=== PATIENT | female | born 1995 | race Hispanic/Latino ===

== ENCOUNTER 2019-08-05 01:35 | Emergency (ER) | payer OTHER ==
[2019-08-05 02:16] LABS: APPEARANCE,URINE Cloudy (CLEAR); BILIRUBIN,URINE Negative (NEGATIVE); COLOR,URINE Yellow (YELLOW); GLUCOSE, URINE (UA) Negative (NEGATIVE); KETONES,URINE Negative (NEGATIVE); LEUKOCYTE ESTERASE ,URINE Large (NEGATIVE); NITRATE,URINE Negative (NEGATIVE); OCCULT BLOOD,URINE Negative (NEGATIVE); PROTEIN,URINE Negative (NEGATIVE)
[2019-08-05 02:19] LABS: HCG,QUAL RESULT POSITIVE (NEGATIVE)
[2019-08-05 02:37] LABS: RBC,URINE 0-1 /HPF (0-1)
[2019-08-05 02:38] LABS: BACTERIA,URINE Few /HPF (None Seen); SQUAMOUS EPITHELIAL CELL,UR Moderate /HPF (0-2); TRICHOMONAS,URINE Rare /LPF (None Seen); YEAST,URINE BUDDING Rare /HPF (None Seen)
[2019-08-05 02:53] LABS: BASOPHILS % (AUTO) 0.5 % (0.0-5.0); EOSINOPHILS % (AUTO) 3.1 % (0.0-8.0); HEMATOCRIT 43.8 % (36-48); LYMPHOCYTES % (AUTO) 12.5 % (21.0-51.0); MEAN CORPUSCULAR HEMOGLOBIN 29.1 pg (27.0-33.0); MEAN CORPUSCULAR HGB CONC 33.5 g/dL (32.0-36.0); MONOCYTES % (AUTO) 5.1 % (3.0-13.0); NEUTROPHILS % (AUTO) 78.8 % (40.0-77.0); PLATELET COUNT (AUTO) 252 K/uL (130-400); RED BLOOD CELL COUNT(AUTO) 5.04 MIL/uL (4.00-5.50); RED CELL DISTRIBUTION WIDTH 13.5 % (11.0-15.5); WHITE BLOOD COUNT (AUTO) 12.4 K/uL (4.8-10.8)
[2019-08-05 03:19] LABS: CREATININE 0.7 mg/dL (0.5-1.5); POTASSIUM 3.9 mmol/L (3.5-5.1)
[2019-08-05 03:23] LABS: ALBUMIN 3.5 g/dL (3.5-5.0); BILIRUBIN,TOTAL 0.2 mg/dL (0.2-1.0); TOTAL PROTEIN, SERUM 7.5 g/dL (6.0-8.3)
== END 2019-08-05 04:52 | disposition home or self-care (01) ==
LOC: EDH 01:35
DX: O23.41 Unspecified infection of urinary tract in pregnancy, first trimester (principal); O99.511 Diseases of the respiratory system complicating pregnancy, first trimester; R11.2 Nausea with vomiting, unspecified; R10.9 Unspecified abdominal pain; J45.909 Unspecified asthma, uncomplicated; Z91.010 Allergy to peanuts; Z3A.01 Less than 8 weeks gestation of pregnancy
CPT/HCPCS: 36415; 76801; 80053; 81001; 81025; 83690; 84702; 85025

== ENCOUNTER 2019-09-28 01:19 | Emergency (ER) | payer OTHER ==
[2019-09-28 01:44] LABS: APPEARANCE,URINE Clear (CLEAR); BILIRUBIN,URINE Negative (NEGATIVE); COLOR,URINE Yellow (YELLOW); GLUCOSE, URINE (UA) Negative (NEGATIVE); KETONES,URINE Negative (NEGATIVE); LEUKOCYTE ESTERASE ,URINE Trace (NEGATIVE); NITRATE,URINE Negative (NEGATIVE); OCCULT BLOOD,URINE Negative (NEGATIVE); PH,URINE 7.5 (5.0-8.0); PROTEIN,URINE Negative (NEGATIVE); UROBILINOGEN,URINE 0.2 mg/dL (0.2-1.0)
[2019-09-28 01:59] LABS: BACTERIA,URINE None Seen /HPF (None Seen); RBC,URINE None Seen /HPF (0-1); SQUAMOUS EPITHELIAL CELL,UR Rare /HPF (0-2); WBC,URINE None Seen /HPF (0-1)
[2019-09-28] MEDS ORDERED: FAMOTIDINE/PF 20 MG/2 ML VIAL IV ONE (02:00)
[2019-09-28 02:02] LABS: BASOPHILS % (AUTO) 0.5 % (0.0-5.0); EOSINOPHILS % (AUTO) 2.8 % (0.0-8.0); HEMATOCRIT 35.2 % (36-48); LYMPHOCYTES % (AUTO) 20.9 % (21.0-51.0); MEAN CORPUSCULAR HEMOGLOBIN 28.5 pg (27.0-33.0); MEAN CORPUSCULAR HGB CONC 33.2 g/dL (32.0-36.0); MEAN CORPUSCULAR VOLUME 85.9 fL (79-99); MONOCYTES % (AUTO) 7.1 % (3.0-13.0); NEUTROPHILS % (AUTO) 68.3 % (40.0-77.0); PLATELET COUNT (AUTO) 233 K/uL (130-400); RED CELL DISTRIBUTION WIDTH 13.4 % (11.0-15.5); WHITE BLOOD COUNT (AUTO) 10.7 K/uL (4.8-10.8)
[2019-09-28 02:11] LABS: CREATININE 0.5 mg/dL (0.5-1.5); POTASSIUM 3.6 mmol/L (3.5-5.1)
[2019-09-28 02:36] LABS: ALBUMIN 3.1 g/dL (3.5-5.0); BILIRUBIN,TOTAL 0.1 mg/dL (0.2-1.0); TOTAL PROTEIN, SERUM 7.1 g/dL (6.0-8.3)
== END 2019-09-28 03:44 | disposition home or self-care (01) ==
LOC: EDH 01:19
DX: O99.612 Diseases of the digestive system complicating pregnancy, second trimester (principal); K80.80 Other cholelithiasis without obstruction; O99.512 Diseases of the respiratory system complicating pregnancy, second trimester; J45.909 Unspecified asthma, uncomplicated; M54.2 Cervicalgia; Z91.010 Allergy to peanuts; Z79.899 Other long term (current) drug therapy; Z3A.15 15 weeks gestation of pregnancy
CPT/HCPCS: 36415; 76705; 76801; 80053; 81001; 82150; 83690; 84702; 85025; 96374; 99285; J3490

== ENCOUNTER 2020-02-07 01:19 | Observation (INO) | payer MEDICAID, OTHER ==
[~2020-02-07] VITALS: Ht 152.4 cm; Wt 114.8 kg
[2020-02-07] MEDS ORDERED: LACTATED RINGERS 1000ML IV PRN (01:30)
[2020-02-07] MEDS ORDERED: GLYB5TAB8 PO (01:35)
[2020-02-07 01:40] VITALS: BP 120/59
[2020-02-07] MEDS: LACTATED RINGERS 1000ML 1,000 ML IV SCH ×2 (01:50→03:19)
[2020-02-07 02:01] LABS: APPEARANCE,URINE Clear (CLEAR); BILIRUBIN,URINE Negative (NEGATIVE); COLOR,URINE Yellow (YELLOW); GLUCOSE, URINE (UA) Negative (NEGATIVE); KETONES,URINE 40 mg/dL (NEGATIVE); LEUKOCYTE ESTERASE ,URINE Trace (NEGATIVE); NITRATE,URINE Negative (NEGATIVE); OCCULT BLOOD,URINE Negative (NEGATIVE); PH,URINE 7.5 (5.0-8.0); PROTEIN,URINE Negative (NEGATIVE)
[2020-02-07 02:08] LABS: AMPHET/METH SCREEN,URINE NEGATIVE (NEGATIVE); BARBITURATE SCREEN, URINE NEGATIVE (NEGATIVE); BENZODIAZEPINES SCREEN,URINE NEGATIVE (NEGATIVE); CANNABINOID SCREEN,URINE NEGATIVE (NEGATIVE); COCAINE SCREEN,URINE NEGATIVE (NEGATIVE); OPIATE SCREEN,URINE NEGATIVE (NEGATIVE); PHENCYCLIDINE SCREEN,URINE NEGATIVE (NEGATIVE)
[2020-02-07 02:12] LABS: BACTERIA,URINE Few /HPF (None Seen); RBC,URINE None Seen /HPF (0-1); SQUAMOUS EPITHELIAL CELL,UR Few /HPF (0-2); WBC,URINE 0-1 /HPF (0-1)
== END 2020-02-07 04:55 | disposition home or self-care (01) ==
LOC: EDH 01:19 → LDH 01:34
PROVIDERS: ADMIT Obstetrics & Gynecology; ATTEND Obstetrics & Gynecology
DX: O62.9 Abnormality of forces of labor, unspecified (principal); O36.8130 Decreased fetal movements, third trimester, not applicable or unspecified; O24.415 Gestational diabetes mellitus in pregnancy, controlled by oral hypoglycemic drugs; Z87.09 Personal history of other diseases of the respiratory system; Z3A.35 35 weeks gestation of pregnancy
CPT/HCPCS: 80305; 81001; 82948; 99284; G0378 ×3; 96360; 96361

== ENCOUNTER 2021-04-05 23:24 | Emergency (ER) | payer MEDICAID, OTHER ==
[~2021-04-05] VITALS: Ht 154.9 cm; Wt 102.1 kg
[~2021-04-05 23:24] MED LIST: GLYB5TAB8 PO
[2021-04-06 00:05] VITALS: BP 141/88
[2021-04-06] MEDS ORDERED: DICYCLOMINE HCL 10 MG/5 ML ML PO ONE (00:30)
[2021-04-06] MEDS ORDERED: LIDOCAINE HCL 2% VISCOUS 15 ML UDCUP PO ONE (00:30)
[2021-04-06] MEDS ORDERED: ONDANSETRON 4MG INJ IVP ONE (00:30)
[2021-04-06] MEDS ORDERED: MAG/ALUM/SIMETH 30 ML UDCUP PO ONE (00:30)
[2021-04-06] MEDS ORDERED: FAMOTIDINE 20MG TAB PO ONE (00:30)
[2021-04-06 00:53] LABS: BASOPHILS % (AUTO) 0.4 % (0.0-5.0); HEMATOCRIT 39.1 % (36-48); LYMPHOCYTES % (AUTO) 21.7 % (21.0-51.0); MEAN CORPUSCULAR HEMOGLOBIN 26.9 pg (27.0-33.0); MEAN CORPUSCULAR HGB CONC 31.7 g/dL (32.0-36.0); MEAN CORPUSCULAR VOLUME 84.8 fL (79-99); MONOCYTES % (AUTO) 10.3 % (3.0-13.0); NEUTROPHILS % (AUTO) 63.3 % (40.0-77.0); PLATELET COUNT (AUTO) 271 K/uL (130-400); RED BLOOD CELL COUNT(AUTO) 4.61 MIL/uL (4.00-5.50); RED CELL DISTRIBUTION WIDTH 14.4 % (11.0-15.5); WHITE BLOOD COUNT (AUTO) 7.6 K/uL (4.8-10.8)
[2021-04-06 00:58] LABS: APPEARANCE,URINE Cloudy (CLEAR); BILIRUBIN,URINE Negative (NEGATIVE); COLOR,URINE Yellow (YELLOW); GLUCOSE, URINE (UA) Negative (NEGATIVE); KETONES,URINE Trace mg/dL (NEGATIVE); LEUKOCYTE ESTERASE ,URINE Negative (NEGATIVE); NITRATE,URINE Negative (NEGATIVE); OCCULT BLOOD,URINE Negative (NEGATIVE); PH,URINE 5.5 (5.0-8.0); PROTEIN,URINE Negative (NEGATIVE)
[2021-04-06 01:00] LABS: HCG,QUAL RESULT POSITIVE (NEGATIVE)
[2021-04-06 01:04] LABS: CREATININE 0.7 mg/dL (0.5-1.5); POTASSIUM 3.7 mmol/L (3.5-5.1)
[2021-04-06 01:07] LABS: RBC,URINE None Seen /HPF (0-1); WBC,URINE 0-1 /HPF (0-1)
[2021-04-06 01:08] LABS: ALBUMIN 3.3 g/dL (3.5-5.0); BILIRUBIN,TOTAL 0.1 mg/dL (0.2-1.0); TOTAL PROTEIN, SERUM 7.6 g/dL (6.0-8.3)
[2021-04-06 01:08] LABS: BACTERIA,URINE Few /HPF (None Seen); SQUAMOUS EPITHELIAL CELL,UR Moderate /HPF (0-2)
[2021-04-06] MEDS ORDERED: MAG/ALUM/SIMETH 30 ML UDCUP ONE (02:21)
[2021-04-06] MEDS ORDERED: LIDOCAINE HCL 2% VISCOUS 15 ML UDCUP ONE (02:21)
[2021-04-06] MEDS ORDERED: ONDANSETRON 4MG TABLET ONE (02:22)
[2021-04-06] MEDS ORDERED: FAMOTIDINE 20MG TAB ONE (02:22)
[2021-04-06] MEDS ORDERED: PREN1.4T2 PO (04:21)
[2021-04-06] MEDS ORDERED: SUCR1TAB28 PO (04:21)
[2021-04-06 05:03] VITALS: BP 142/68
== END 2021-04-06 05:05 | disposition home or self-care (01) ==
LOC: EDH 23:34
DX: O26.891 Other specified pregnancy related conditions, first trimester (principal); R10.13 Epigastric pain; R11.0 Nausea; R19.7 Diarrhea, unspecified; Z3A.01 Less than 8 weeks gestation of pregnancy; Z79.899 Other long term (current) drug therapy; Z98.890 Other specified postprocedural states
CPT/HCPCS: 36415; 76705; 76817; 80053; 81001; 81025; 83690; 85025; 99285; Q0162

== ENCOUNTER 2021-10-14 21:06 | Observation (INO) | payer MEDICAID, OTHER ==
[~2021-10-14] VITALS: Ht 154.9 cm; Wt 123.4 kg
[~2021-10-14 21:06] MED LIST changes: +PREN1.4T2 PO; +SUCR1TAB28 PO
[2021-10-14] MEDS ORDERED: LACTATED RINGERS 1000ML IV PRN (21:30)
[2021-10-14 21:53] LABS: APPEARANCE,URINE Clear (CLEAR); BILIRUBIN,URINE Negative (NEGATIVE); COLOR,URINE Yellow (YELLOW); GLUCOSE, URINE (UA) Negative (NEGATIVE); KETONES,URINE Negative (NEGATIVE); LEUKOCYTE ESTERASE ,URINE Small (NEGATIVE); NITRATE,URINE Negative (NEGATIVE); OCCULT BLOOD,URINE Negative (NEGATIVE); PH,URINE 7.5 (5.0-8.0); PROTEIN,URINE Negative (NEGATIVE)
[2021-10-14 21:58] LABS: RBC,URINE 0-1 /HPF (0-1)
[2021-10-14 21:59] LABS: BACTERIA,URINE Few /HPF (None Seen); SQUAMOUS EPITHELIAL CELL,UR Few /HPF (0-2)
[2021-10-14 22:01] LABS: AMPHET/METH SCREEN,URINE NEGATIVE (NEGATIVE); BARBITURATE SCREEN, URINE NEGATIVE (NEGATIVE); BENZODIAZEPINES SCREEN,URINE NEGATIVE (NEGATIVE); CANNABINOID SCREEN,URINE NEGATIVE (NEGATIVE); COCAINE SCREEN,URINE NEGATIVE (NEGATIVE); OPIATE SCREEN,URINE NEGATIVE (NEGATIVE); PHENCYCLIDINE SCREEN,URINE NEGATIVE (NEGATIVE)
[2021-10-14 22:15] VITALS: BP 121/57
[2021-10-14] MEDS ORDERED: PREN1TAB80 PO (22:20)
== END 2021-10-14 23:25 | disposition home or self-care (01) ==
LOC: EDH 21:06 → LDH 21:07
PROVIDERS: ADMIT Obstetrics & Gynecology; ATTEND Obstetrics & Gynecology
DX: O62.9 Abnormality of forces of labor, unspecified (principal); O36.8130 Decreased fetal movements, third trimester, not applicable or unspecified; O26.893 Other specified pregnancy related conditions, third trimester; R60.0 Localized edema; Z3A.35 35 weeks gestation of pregnancy
CPT/HCPCS: 59025; 76819; 80305; 81001; G0378 ×2; G0379

== ENCOUNTER 2021-11-04 19:18 | Inpatient (IN) | payer MEDICAID, OTHER ==
[~2021-11-04] VITALS: Ht 152.4 cm; Wt 122.9 kg
[~2021-11-04 19:18] MED LIST changes: +PREN1TAB80 PO
[2021-11-04] MEDS ORDERED: PREN-218 PO (19:51)
[2021-11-04 19:58] LABS: APPEARANCE,URINE Clear (CLEAR); BILIRUBIN,URINE Negative (NEGATIVE); COLOR,URINE Dark Yellow (YELLOW); GLUCOSE, URINE (UA) TRACE mg/dL (NEGATIVE); KETONES,URINE >=160 mg/dL (NEGATIVE); LEUKOCYTE ESTERASE ,URINE Small (NEGATIVE); NITRATE,URINE Negative (NEGATIVE); OCCULT BLOOD,URINE Negative (NEGATIVE); PROTEIN,URINE Trace mg/dL (NEGATIVE)
[2021-11-04 20:05] LABS: BACTERIA,URINE Moderate /HPF (None Seen); RBC,URINE 0-1 /HPF (0-1)
[2021-11-04 20:06] LABS: AMPHET/METH SCREEN,URINE NEGATIVE (NEGATIVE); BARBITURATE SCREEN, URINE NEGATIVE (NEGATIVE); BENZODIAZEPINES SCREEN,URINE NEGATIVE (NEGATIVE); CANNABINOID SCREEN,URINE NEGATIVE (NEGATIVE); COCAINE SCREEN,URINE NEGATIVE (NEGATIVE); MUCUS,URINE Few LPF (None Seen); OPIATE SCREEN,URINE NEGATIVE (NEGATIVE); PHENCYCLIDINE SCREEN,URINE NEGATIVE (NEGATIVE); SQUAMOUS EPITHELIAL CELL,UR Moderate /HPF (0-2)
[2021-11-04 20:52] LABS: HEMATOCRIT 32.9 % (36-48); MEAN CORPUSCULAR HEMOGLOBIN 25.2 pg (27.0-33.0); MEAN CORPUSCULAR HGB CONC 32.2 g/dL (32.0-36.0); MEAN CORPUSCULAR VOLUME 78.3 fL (79-99); RED BLOOD CELL COUNT(AUTO) 4.2 MIL/uL (4.00-5.50); RED CELL DISTRIBUTION WIDTH 13.2 % (11.0-15.5); WHITE BLOOD COUNT (AUTO) 8.5 K/uL (4.8-10.8)
[2021-11-04] MEDS: LACTATED RINGERS 1000ML 1,000 ML IV SCH ×2 (20:52→21:17)
[2021-11-04] MEDS ORDERED: CEFAZOLIN SODIUM 1 GM VIAL IVP PRN (22:30)
[2021-11-04] MEDS ORDERED: CALDOLOR 800MG+NS 250ML 250 ML IV SCH (22:30)
[2021-11-04] MEDS ORDERED: MORPHINE PF 100MG/10ML AMP IV ONE (22:32)
[2021-11-04] MEDS ORDERED: CITRIC ACID/SODIUM CITRATE 30 ML UDCUP ONE (22:33)
[2021-11-04] MEDS ORDERED: FENTANYL CITRATE PF 50 MCG/1 ML 2ML VIAL ONE (22:33)
[2021-11-04] MEDS ORDERED: METOCLOPRAMIDE 10 MG/2 ML VIAL ONE (22:33)
[2021-11-04] MEDS ORDERED: CITRIC ACID/SODIUM CITRATE 30 ML UDCUP PO PRN (23:00)
[2021-11-04] MEDS ORDERED: METOCLOPRAMIDE 10 MG/2 ML VIAL IVP PRN (23:00)
[2021-11-04] MEDS ORDERED: OXYTOCIN 10 UNIT/1ML 10ML VIAL ONE (23:21)
[2021-11-04] MEDS ORDERED: PHENYLEPHRINE HCL 10 MG/ML 1ML VIAL IV ONE (23:21)
[2021-11-04] MEDS ORDERED: MIDAZOLAM HCL 1 MG/ML 2ML VIAL ONE (23:29)
[2021-11-05] MEDS ORDERED: ONDANSETRON 4MG INJ ONE (00:36)
[2021-11-05] MEDS ORDERED: 0.9%NACL 10ML VIAL IVP PRN (01:00)
[2021-11-05] MEDS ORDERED: MEPERIDINE-PF 75 MG/ML SYG IM PRN (01:00)
[2021-11-05] MEDS ORDERED: PROMETHAZINE HCL 25 MG/ML 1ML AMPULE IM PRN (01:00)
[2021-11-05] MEDS ORDERED: DEXTROSE 5 %-0.45 % NACL 1,000 ML IV PRN (01:00)
[2021-11-05] MEDS ORDERED: OXYTOCIN-LR 20 UNITS/1000 ML 1,000 ML IV PRN (01:00)
[2021-11-05 04:18] VITALS: BP 118/58
[2021-11-05 07:23] VITALS: BP 111/48
[2021-11-05] MEDS: LORATADINE 10 MG TABLET PO SCH ×2 (08:32→09:00)
[2021-11-05] MEDS: CALDOLOR 800MG+NS 250ML 250 ML IV SCH ×3 (08:32→17:48)
[2021-11-05] MEDS ORDERED: BISACODYL 10 MG SUPP.RECT RC PRN (09:00)
[2021-11-05] MEDS ORDERED: MEASLES/MUMPS/RUBELLA VACCINE, LIVE 0.5 ML/VIAL SQ SCH (09:00)
[2021-11-05] MEDS ORDERED: ACETAMINOPHEN 500 MG TABLET PO PRN (09:00)
[2021-11-05] MEDS ORDERED: DIPHENHYDRAMINE HCL 25 MG CAPSULE PO PRN (09:00)
[2021-11-05] MEDS ORDERED: HYDROCODONE/ACETAMINOPHEN 5/325 MG TAB PO PRN (09:00)
[2021-11-05] MEDS ORDERED: DIPH,PERTUSS(ACELL),TET VAC/PF 0.5 ML VIAL IM SCH (09:00)
[2021-11-05] MEDS ORDERED: LANOLIN 30GM OINTMENT TP PRN (09:00)
[2021-11-05] MEDS ORDERED: IBUPROFEN 600 MG TABLET PO PRN (09:00)
[2021-11-05] MEDS: SIMETHICONE 80 MG TAB.CHEW PO PRN ×3 (09:24→21:01)
[2021-11-05] MEDS: DOCUSATE SODIUM 100 MG CAP PO SCH ×2 (09:24→21:01)
[2021-11-05 11:21] VITALS: BP 106/63
[2021-11-05 16:28] VITALS: BP 93/54
[2021-11-05 19:50] VITALS: BP 96/48
[2021-11-05 23:18] VITALS: BP 112/63
[2021-11-05] MEDS: ACETAMINOPHEN WITH CODEINE 1 TAB TAB PO PRN (23:46)
[2021-11-06] MEDS ORDERED: PROMETHAZINE HCL 25 MG/ML 1ML AMPULE IM PRN (00:30)
[2021-11-06] MEDS ORDERED: ONDANSETRON 4MG INJ IVP PRN (00:30)
[2021-11-06 03:19] VITALS: BP 112/54
[2021-11-06 07:24] VITALS: BP 116/66
[2021-11-06 07:36] LABS: RAPID PLASMA REAGIN NONREACTIVE (NONREACTIVE)
[2021-11-06] MEDS: DOCUSATE SODIUM 100 MG CAP PO SCH (07:56)
[2021-11-06] MEDS: LORATADINE 10 MG TABLET PO SCH (07:56)
[2021-11-06] MEDS: SIMETHICONE 80 MG TAB.CHEW PO PRN (07:56)
[2021-11-06] MEDS: ACETAMINOPHEN WITH CODEINE 1 TAB TAB PO PRN (07:57)
[2021-11-06 07:58] LABS: HEMATOCRIT 31.8 % (36-48); MEAN CORPUSCULAR HEMOGLOBIN 25.3 pg (27.0-33.0); MEAN CORPUSCULAR HGB CONC 31.8 g/dL (32.0-36.0); MEAN CORPUSCULAR VOLUME 79.5 fL (79-99); RED CELL DISTRIBUTION WIDTH 13.3 % (11.0-15.5); WHITE BLOOD COUNT (AUTO) 8.3 K/uL (4.8-10.8)
[2021-11-06 11:43] VITALS: BP 126/67
== END 2021-11-06 13:15 | disposition home or self-care (01) | DRG 788 ==
LOC: EDH 19:18 → OBSVTOIN 19:19 → LDH 19:19 → INTOOBSV 19:19 → WSH 11-05 07:11
PROVIDERS: ADMIT Obstetrics & Gynecology; ATTEND Obstetrics & Gynecology
PROC: 3E0234Z Introduction of Serum, Toxoid and Vaccine into Muscle, Percutaneous Approach (ICD-10-PCS; 2021-11-04)
PROC: 3E0134Z Introduction of Serum, Toxoid and Vaccine into Subcutaneous Tissue, Percutaneous Approach (ICD-10-PCS; 2021-11-04)
PROC: 10D00Z1 Extraction of Products of Conception, Low, Open Approach (ICD-10-PCS; principal; 2021-11-04 23:00)
DX: O34.211 Maternal care for low transverse scar from previous cesarean delivery (principal); E66.01 Morbid (severe) obesity due to excess calories; O24.420 Gestational diabetes mellitus in childbirth, diet controlled; O99.214 Obesity complicating childbirth; Z37.0 Single live birth; Z3A.38 38 weeks gestation of pregnancy; Z23 Encounter for immunization; Z91.010 Allergy to peanuts
CPT/HCPCS: 36415; 59510; 80305; 81001; 82947; 85027; 86592; 86701; 86850; 86900; 86901; 87088; 87340; 87390; 90707; 90715; A4344; G0378; J0690; J1741; J2250; J2274; J2370; J2405; J2550; J2590; J2765; J3010; J7120

== ENCOUNTER 2022-02-28 10:06 | Emergency (ER) | payer MEDICAID, OTHER ==
[~2022-02-28] VITALS: Ht 152.4 cm; Wt 127.0 kg
[~2022-02-28 10:06] MED LIST changes: -GLYB5TAB8 PO; +PREN-218 PO; -PREN1.4T2 PO; -PREN1TAB80 PO; -SUCR1TAB28 PO
[2022-02-28] MEDS ORDERED: ACETAMINOPHEN 500 MG TABLET PO ONE (10:30)
[2022-02-28 11:07] LABS: CREATININE 0.7 mg/dL (0.5-1.5); POTASSIUM 3.8 mmol/L (3.5-5.1)
[2022-02-28 11:10] LABS: BASOPHILS % (AUTO) 0.4 % (0.0-5.0); EOSINOPHILS % (AUTO) 3.1 % (0.0-8.0); LYMPHOCYTES % (AUTO) 18.6 % (21.0-51.0); MEAN CORPUSCULAR HEMOGLOBIN 25.5 pg (27.0-33.0); MEAN CORPUSCULAR HGB CONC 31.3 g/dL (32.0-36.0); MEAN CORPUSCULAR VOLUME 81.4 fL (79-99); MONOCYTES % (AUTO) 5.7 % (3.0-13.0); PLATELET COUNT (AUTO) 294 K/uL (130-400); RED BLOOD CELL COUNT(AUTO) 4.67 MIL/uL (4.00-5.50); RED CELL DISTRIBUTION WIDTH 14.2 % (11.0-15.5); WHITE BLOOD COUNT (AUTO) 8.9 K/uL (4.8-10.8)
[2022-02-28 11:12] LABS: ALBUMIN 3.4 g/dL (3.5-5.0); BILIRUBIN,TOTAL 0.2 mg/dL (0.2-1.0); TOTAL PROTEIN, SERUM 7.3 g/dL (6.0-8.3)
[2022-02-28 11:40] VITALS: BP 108/56
== END 2022-02-28 11:38 | disposition home or self-care (01) ==
LOC: EDH 10:06
DX: R07.89 Other chest pain (principal); R11.2 Nausea with vomiting, unspecified
CPT/HCPCS: 36415; 80053; 84484; 85025; 93005